=== PATIENT | male | born 1990 | race Caucasian/White ===

== ENCOUNTER 2018-08-31 14:39 | Emergency (ER) | payer OTHER ==
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
[2018-08-31 15:51] VITALS: BP 149/97
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
== END 2018-08-31 15:52 | disposition home or self-care (01) ==
DX: S42.022A Displaced fracture of shaft of left clavicle, initial encounter for closed fracture (principal); V19.9XXA Pedal cyclist (driver) (passenger) injured in unspecified traffic accident, initial encounter; Y92.830 Public park as the place of occurrence of the external cause; Y93.55 Activity, bike riding
CPT/HCPCS: A4565